=== PATIENT | female | born 1965 | race Caucasian/White ===

== ENCOUNTER 2020-05-09 11:29 | Emergency (ER) | payer BC, MEDICAID, SELFPAY ==
[2020-05-09 11:44] VITALS: BP 116/74; PULSE 83; RESP 20; TEMP 36.9; O2SAT 97
--- NOTE | 2020-05-09 12:11 | ED.GENADULT ---
HPI - General Adult General Chief complaint: Upper Respiratory Infection Stated complaint: upper respiratory infection Time Seen by Provider: 05/09/20 11:45 Source: patient and RN notes reviewed Mode of arrival: ambulatory Limitations: no limitations History of Present Illness HPI narrative: Patient presents today complaining of left upper jaw pain and swelling x4 days with intermittent nausea and headache. She does have some bad teeth, but has not seen a dentist in many years. Denies sick contacts, seasonal allergies, recent fever, sweats, chills, sore throat. Denies shortness of breath or difficulty swallowing. Smokes 1 pack/week. Currently rates her pain 03/22 and has been taking Benadryl, Aleve, and ibuprofen without relief. MD complaint: Left upper jaw pain Related Data Allergies Allergy/AdvReac Type Severity Reaction Status Date / Time No Known Allergies Allergy Verified 05/09/20 11:51 Review of Systems Review of Systems: Narrative: CONSTITUTIONAL: Denies body aches, fever, chills, or sweats. EYES: Denies visual changes, redness, or discharge. ENT: Denies rhinorrhea, congestion, sore throat, or otalgia.+ Postnasal drip, left upper jaw pain and swelling CARDIOVASCULAR: Denies chest pain, palpitations, or edema. RESPIRATORY: Denies cough or dyspnea. GASTROINTESTINAL: Denies abdominal pain, vomiting, or diarrhea. + Nausea GENITOURINARY: Denies dysuria or hematuria. SKIN: Denies rash, itching, or wounds. MUSCULOSKELETAL: Denies back pain, joint pain, or myalgia. NEUROLOGIC: Denies headache, numbness, tingling, or weakness. PSYCH: Denies depression or anxiety. [facility] Past Medical History Medical History (Updated 05/09/20 @ 12:17 by Tayler Emery, [facility], ) Anxiety Family History Family History (Updated 12/19/18 @ 14:33 by DOCTOR UNKNOWN) Mother Hypertension Other Depression Family history of alcoholism Social History Social History Smoking status: Light tobacco smoker Alcohol intake: never Comments At time of signature, I have reviewed and agree with nursing past medical, surgical, social and family history unless otherwise noted. Please see nursing chart for further information. There is no relevant family history pertinent to the presenting complaint Exam Narrative: Exam Narrative: GENERAL: Well-appearing, well-nourished, and in no acute distress. HEAD: Normocephalic, atraumatic. EYES: EOMI. No redness or drainage. Conjunctivae normal. ENT: Mucous membranes pink and moist. Nares clear. No rhinorrhea. TMs normal bilaterally. Throat normal. Uvula midline. Tenderness to the gumline surrounding tooth 14 and 15. No obvious periapical abscess. Scant swelling to the left upper jawline. Gross dental decay. NECK: Normal AROM. Supple. No lymphadenopathy. CHEST: No respiratory distress. Clear to auscultation. HEART: Regular rate and rhythm. No murmur appreciated. Normal peripheral pulses. EXTREMITIES: Normal range of motion. No edema. SKIN: Warm, dry, no rash. Capillary refill normal. Normal skin turgor. NEURO: No focal deficits. Alert and oriented x3. Gait steady. PSYCH: Normal affect. No signs of depression or anxiety. Course Vital Signs Vital signs: Vital Signs Temperature 98.5 F 05/09/20 11:44 Pulse Rate 83 05/09/20 11:44 Respiratory Rate 05/09/20 11:44 Blood Pressure 116/74 05/09/20 11:44 Pulse Oximetry 97 05/09/20 11:44 Temperature 98.5 F 05/09/20 11:44 Pulse Rate 83 05/09/20 11:44 Respiratory Rate 05/09/20 11:44 Blood Pressure 116/74 05/09/20 11:44 Pulse Oximetry 97 05/09/20 11:44 Reviewed Medical Decision Making Differential Diagnosis Differential Diagnosis: tooth abscess, infected dental caries, sinusitis, dental fracture, AOM Vital Signs Vital Signs: Vital Signs Temperature 98.5 F 05/09/20 11:44 Pulse Rate 83 05/09/20 11:44 Respiratory Rate 05/09/20 11:44 Blood Pressure 116/74 05/09/20 11:44 Pulse O
== END 2020-05-09 12:30 | disposition home or self-care (01) ==
PROVIDERS: Emergency Provider Nurse Practitioner; PCP Family Medicine
DX: K04.7 Periapical abscess without sinus (principal); F17.200 Nicotine dependence, unspecified, uncomplicated
CPT/HCPCS: 99213; G0463